=== PATIENT | female | born 1995 | race Caucasian/White ===

== ENCOUNTER 2016-10-14 15:01 | Emergency (ER) | payer BC ==
[~2016-10-14] VITALS: Ht 165.1 cm; Wt 46.9 kg
[~2016-10-14 15:01] MED LIST: ABAT250I IV; birthcontrol implant
[2016-10-14 15:04] VITALS: Ht 165.1 cm; Wt 46.9 kg
[2016-10-14] MEDS ORDERED: ETON1IMP2 INTRAD (15:35)
[2016-10-14] MEDS ORDERED: ADAL40KI SC (15:35)
[2016-10-14 15:40] LABS: BASO % 0.6 %; BASO ABS # 0.07 K/uL (0-0.2); COMPLETE YES; EOS % 3.2 %; HEMATOCRIT 43.6 % (37-47); IG% 0.2 %; LYMPH % 34.3 %; LYMPH ABS # 3.96 K/uL (1.2-3.4); MEAN CELL VOLUME 89.7 fL (80-100); MEAN CORPUSCULAR HEMOGLOBIN 30.9 pg (25-34); MEAN CORPUSCULAR HGB CONC 34.4 g/dl (32-36); MEAN PLATELET VOLUME 11.3 fL (7.4-10.4); MONO % 7.9 %; NEUT % 53.8 %; PLATELET COUNT 266 K/uL (130-400); RED BLOOD COUNT 4.86 M/uL (4.2-5.4); WHITE BLOOD COUNT 11.55 K/uL (4.8-10.8)
[2016-10-14 16:00] LABS: BUN/CREATININE RATIO 14.3 (10-20); CALCIUM 9.6 mg/dl (8.5-10.1); CREATININE 0.78 mg/dl (0.60-1.20); POTASSIUM 3.7 mmol/L (3.5-5.1)
[2016-10-14 16:04] LABS: ALB/GLOB RATIO 1.2 (0.9-2)
[2016-10-14] MEDS ORDERED: SODIUM CHLORIDE 0.9% 500ML 500 ML IV STA (16:15)
--- NOTE | 2016-10-14 16:24 | DIAGNOSTIC IMAGING REPORT ---
CHEST 2 VIEWS ROUTINE CLINICAL HISTORY: EVALUATE L C/P, SOB dyspnea COMPARISON STUDY: No previous studies for comparison. FINDINGS: The bones soft tissues and hemidiaphragms are normal. The cardiomediastinal silhouette is normal. The lungs are clear. The pulmonary vasculature is normal. IMPRESSION: Negative chest. Electronically signed by: Michel Phillpi M.D. 10/14/2016 4:21 PM Dictated Date/Time: 10/14/2016 4:21 PM
[2016-10-14 17:46] VITALS: BP 100/64; PULSE 74; TEMP 36.7; O2SAT 100
--- NOTE | 2016-10-14 18:51 | EMERGENCY ROOM VISIT NOTE ---
History First contact with patient: 15:09 Chief Complaint: CHEST PAIN Stated Complaint: CHEST PAIN (LEFT SIDE) & SOB Nursing Triage Summary: PT C/O SOB, CP, AND PAIN IN LEFT SHOULDER. PT VERBALIZES THIS STARTED TODAY, PT THINKS IT MIGHT BE ANXIETY RELATED, NO DIAGNOSED HX OF ANXIETY BUT "I THINK I HAVE IT". History of Present Illness The patient is a 21 year old female who presents to the Emergency Room with complaints of left-sided chest pain, neck and shoulder discomfort. The patient reports that she was driving this morning when the pain developed abruptly. Showed a thereafter, the patient then started to feel tingling of bilateral hands and fingers. The patient believes that she may have had some palpitations that lasted approximately 1 minute. She reports that the pain does radiate into the back around the left scapula. She denies any neck pain, headache or dizziness. She also denies any abdominal pain. The patient denies any prior history of cardiopulmonary history, including pneumothorax. She does have a history of rheumatoid arthritis, and administers Humira injections every other week. She is under the care of Dr. Padron. The patient does smoke less than half a pack of cigarettes daily. She has subdermal nexplanon control implants. She denies any personal or family history of blood clots. Her grandfather has had multiple myocardial infarctions in the past. She denies any recent illness. She currently rates her discomfort a 6 out of 10. Review of Systems HEENT: Denies dizziness, visual problems, hearing loss, tinnitus. Denies difficulty swallowing or oral lesions. PULMONARY: Denies cough, sputum production or hemoptysis. CARDIOVASCULAR: Denies dyspnea on exertion, orthopnea or peripheral edema. Otherwise see history of present illness. GASTROINTESTINAL: Denies diarrhea, constipation, nausea, vomiting, or abdominal pain. GENITOURINARY: Denies dysuria, frequency, urgency or nocturia. NEUROLOGIC: Denies history of epilepsy, CVA, TIA or chronic headaches. MUSCULOSKELETAL: Denies history of joint tenderness/swelling. SKIN: Denies rashes or lesions. PSYCHIATRIC: Denies history of depression or mental illness. ENDOCRINE: Denies history of diabetes or thyroid disorders. 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) (3) Tobacco use disorder Surgical Problems: (1) History of TMJ surgery Family History FH: heart disease FH: hypertension Social History Smoking Status: Current Every Day Smoker Alcohol Use: occasionally Marital Status: single Housing Status: lives with family Occupation Status: [employer] student Current/Historical Medications Scheduled Adalimumab (Humira Pen), 40 MG SC Q2 WEEKS Etonogestrel (Nexplanon), 68 MG INTRAD UD Allergies Coded Allergies: Cephalosporins (Unverified Allergy, Unknown, GI SYMPTOMS, 05/06/16) Codeine (Unverified Allergy, Unknown, CHEST PAIN, 05/06/16) Physical Exam Vital Signs Date Time Temp Pulse Resp B/P Pulse Ox O2 Delivery O2 Flow Rate FiO2 10/14/16 17:46 36.7 74 16 100/64 100 10/14/16 17:45 74 16 100/64 100 Room Air 10/14/16 16:28 76 15 100/64 100 Room Air 10/14/16 16:07 81 10/14/16 16:05 Room Air 10/14/16 15:04 36.7 104 18 107/76 99 Room Air Physical Exam CONSTITUTIONAL: Healthy and well nourished. Alert and oriented X 3. PSYCHIATRIC: Patient has positive affect, and does not appear significantly anxious. HEENT: Normocephalic, atraumatic. Pupils equal, round and reactive. No scleral icterus or conjunctival pallor. NECK: Full active range of motion without discomfort. No JVD or carotid bruits. RESPIRATORY: Clear to auscultation bilaterally with no wheezing, crackles, rhonchi or stridor. CARDIOVASCULAR: Regular rate and rhythm with no murmurs, rubs or gallops. GASTROINTESTINAL: Bowel sounds present in all quadrants. Soft and nontender to palpation. MUSCULOSKELETAL: Full range of motion of all joints without discomfort. Patient has no tenderness to palpation across the left anterior chest wall, shoulder or back. INTEGUMENTARY: No rash or other significant dermatologic conditions noted. HEMATOLOGIC: No ecchymosis or petechiae. NEUROLOGIC: Cranial nerves II-XII grossly intact. No focal neurologic deficits noted. Medical Decision & Procedures ER Provider Diagnostic Interpretation: My interpretation of an ECG shows a normal sinus rhythm of [address] elevation or other conduction abnormalities. Computer reading is suggesting possible left atrial enlargement. No prior ECGs are available for comparison. My interpretation of a two-view chest x-ray does not show any consolidations, pneumothorax or widened mediastinum. Radiologist report is as follows: CHEST 2 VIEWS ROUTINE CLINICAL HISTORY: EVALUATE L C/P, SOB dyspnea COMPARISON STUDY: No previous studies for comparison. FINDINGS: The bones soft tissues and hemidiaphragms are normal. The cardiomediastinal silhouette is normal. The lungs are clear. The pulmonary vasculature is normal. IMPRESSION: Negative chest. Laboratory Results 10/14/16 15:31 Red Blood Count 4.86, Mean Corpuscular Volume 89.7, Mean Corpuscular Hemoglobin 30.9, Mean Corpuscular Hemoglobin Concent 34.4, Mean Platelet Volume 11.3, Neutrophils (%) (Auto) 53.8, Lymphocytes (%) (Auto) 34.3, Monocytes (%) (Auto) 7.9, Eosinophils (%) (Auto) 3.2, Basophils (%) (Auto) 0.6, Neutrophils # (Auto) 6.22, Lymphocytes # (Auto) 3.96, Monocytes # (Auto) 0.91, Eosinophils # (Auto) 0.37, Basophils # (Auto) 0.07 10/14/16 15:31 Test 10/14/16 15:31 10/14/16 15:53 White Blood Count 11.55 K/uL (4.8-10.8) Red Blood Count 4.86 M/uL (4.2-5.4) Hemoglobin 15.0 g/dL (12.0-16.0) Hematocrit 43.6 % (37-47) Mean Corpuscular Volume 89.7 fL (80-100) Mean Corpuscular Hemoglobin 30.9 pg (25-34) Mean Corpuscular Hemoglobin Concent 34.4 g/dl (32-36) Platelet Count 266 K/uL (130-400) Mean Platelet Volume 11.3 fL (7.4-10.4) Neutrophils (%) (Auto) 53.8 % Lymphocytes (%) (Auto) 34.3 % Monocytes (%) (Auto) 7.9 % Eosinophils (%) (Auto) 3.2 % Basophils (%) (Auto) 0.6 % Neutrophils # (Auto) 6.22 K/uL (1.4-6.5) Lymphocytes # (Auto) 3.96 K/uL (1.2-3.4) Monocytes # (Auto) 0.91 K/uL (0.11-0.59) Eosinophils # (Auto) 0.37 K/uL (0-0.5) Basophils # (Auto) 0.07 K/uL (0-0.2) RDW Standard Deviation 41.2 fL (36.4-46.3) RDW Coefficient of Variation 12.6 % (11.5-14.5) Immature Granulocyte % (Auto) 0.2 % Immature Granulocyte # (Auto) 0.02 K/uL (0.00-0.02) D-Dimer < 190 ug/L FEU (0-500) Anion Gap 8.0 mmol/L (3-11) Est Creatinine Clear Calc Drug Dose 84.5 ml/min Estimated GFR () 126.0 Estimated GFR (Non- 108.7 BUN/Creatinine Ratio 14.3 (10-20) Calcium Level 9.6 mg/dl (8.5-10.1) Total Bilirubin 0.4 mg/dl (0.2-1) Aspartate Amino Transf (AST/SGOT) 18 U/L (15-37) Alanine Aminotransferase (ALT/SGPT) 24 U/L (12-78) Alkaline Phosphatase 89 U/L (45-117) Total Creatine Kinase 124 U/L (26-192) Creatine Kinase MB 1.2 ng/ml (0.5-3.6) Creatine Kinase MB Ratio 1.0 (0-3.0) Troponin I < 0.015 ng/ml (0-0.045) Total Protein 8.8 gm/dl (6.4-8.2) Albumin 4.8 gm/dl (3.4-5.0) Globulin 4.0 gm/dl (2.5-4.0) Albumin/Globulin Ratio 1.2 (0.9-2) Thyroid Stimulating Hormone (TSH) 1.290 uIu/ml (0.300-4.500) Urine Test NEG (NEG) The above labs were reviewed and were grossly normal. Medications Administered Medications (Trade) Dose Ordered Sig/Fabricio Route Start Time Stop Time Status Last Admin Dose Admin Sodium Chloride (Nss 500ml) 500 ml @ 999 mls/hr Q31M STAT IV 10/14/16 16:15 10/14/16 16:45 DC 10/14/16 16:27 999 MLS/HR ED Course Patient history and physical exam were performed. Nurse's notes were reviewed. Vital signs were reviewed, showing a heart rate of 104 bpm. She is normotensive and afebrile. O2 saturation is 99% on room air. She clinically does not appear dehydrated. IV access was established, and labs were drawn. The patient was hydrated with a normal saline 500 mL bolus. An ECG and two- view chest x-ray were normal. Review of labs shows a normal d-dimer and troponin. White count is mildly elevated, otherwise remaining labs are normal. The patient is euthyroid. Urinalysis is unremarkable. I reviewed the patient 's major assembler history, showing no acute episodes. The case was also discussed with Dr. Encinas, ED attending physician, who agrees with workup and plan of care. The patient was encouraged to follow-up with [facility] cardiology for reevaluation. She was encouraged to avoid any strenuous activities until then. Return to the emergency department for any progressively worsening or other concerning symptoms. The patient was happy with plan of care, voice understanding of all discharge instructions, and denied any symptoms at the time of discharge. Medical Decision Patient presents to the emergency department with complaint of chest pain and shortness of breath. Her workup today is normal. It is certainly possible that the patient had a dysrhythmia at the time of onset. Her cardiac monitoring in the emergency department was otherwise normal. Laboratory studies are not suggestive of pulmonary embolus, myocardial infarction, anemia, thyroid dysfunction, urinary tract infection or electrolyte abnormality. Chest x-ray does not show any evidence for pneumonia or pneumothorax. At this point, I do feel that the patient is safe for outpatient cardiac workup. Impression Primary Impression: Left sided chest pain Additional Impression: Shortness of breath Departure Information Referrals Rayo Leiva D.O. (PCP) Patient Instructions My [facility] Problem Qualifiers
== END 2016-10-14 17:47 | disposition home or self-care (01) ==
LOC: C.EDB 15:02 → C.EDA 17:47
DX: R07.9 Chest pain, unspecified (principal); R06.02 Shortness of breath; M08.00 Unspecified juvenile rheumatoid arthritis of unspecified site; F17.200 Nicotine dependence, unspecified, uncomplicated; Z87.442 Personal history of urinary calculi; Z79.899 Other long term (current) drug therapy; Z88.5 Allergy status to narcotic agent; Z88.8 Allergy status to other drugs, medicaments and biological substances; Z82.49 Family history of ischemic heart disease and other diseases of the circulatory system